=== PATIENT | male | born 1960 | race Hispanic/Latino ===

== ENCOUNTER 2021-12-08 08:19 | Day surgery (SDC) | payer OTHER ==
[2021-12-08] MEDS ORDERED: NITROGLYCERIN SYRINGE 3 ML ONE (08:30)
[2021-12-08] MEDS ORDERED: HEPARIN/NS 5000 UNIT/500ML 1,000 ML IR ONE (08:30)
[2021-12-08] MEDS ORDERED: VERAPAMIL 5 MG/2 ML INJ ONE (08:30)
[2021-12-08] MEDS ORDERED: LIDOCAINE (2%) 20 MG/1 ML VIAL 20 ML MDV INFILTRATI ONE (08:30)
[2021-12-08] MEDS ORDERED: LIDOCAINE (1%) 10 MG/1 ML VIAL 20 ML MDV ONE (08:31)
[2021-12-08] MEDS ORDERED: ASPIRIN EC 325 MG TAB PO ONE (08:49)
[2021-12-08] MEDS ORDERED: SODIUM CHLORIDE 0.9% 500 ML 500 ML IV SCH (09:00)
[2021-12-08 09:15] LABS: Basophils % (Auto) 0.6 % (0.0-1.8); Eosinophils # (Auto) 0.5 K/mm3 (0.0-0.4); Hematocrit 45.9 % (35.5-45.6); Lymphocytes % (Auto) 33.5 % (13.4-35.0); Mean Corpuscular HGB Conc 33 % (32-34); Mean Corpuscular Volume 86 fl (84-94); Monocytes # (Auto) 0.8 K/mm3 (0.0-0.8); Monocytes % (Auto) 13.3 % (0.0-7.3); Platelet Count 220 K/mm3 (140-440); Red Blood Count 5.36 M/mm3 (3.65-5.03); Red Cell Distribution Width 14.3 % (13.2-15.2)
[2021-12-08 09:29] LABS: INR 0.87 (0.87-1.13); Partial Thromboplastin Time 26.7 Sec. (24.2-36.6)
[2021-12-08 09:32] LABS: BUN/Creatinine Ratio 16; Blood Urea Nitrogen 13 mg/dL (9-20); Calcium 9.7 mg/dL (8.4-10.2); Hemolysis Index 4
[2021-12-08] MEDS ORDERED: fentaNYL 100 MCG/2 ML INJ ONE ×2 (10:04→11:42)
[2021-12-08] MEDS: MIDAZOLAM 2 MG/2 ML INJ ONE ×2 (10:20→12:51)
[2021-12-08] MEDS: HEPARIN 10,000 UNITS/10 ML VIAL ONE ×2 (10:25→11:03)
[2021-12-08] MEDS ORDERED: DOPamine 800 MG/D5W 250ML 800 MG/250 ML BAG IV ONE (10:54)
[2021-12-08] MEDS ORDERED: HEPARIN/NS 5000 UNIT/500ML 500 ML IR ONE ×2 (10:57→12:25)
[2021-12-08] MEDS ORDERED: SODIUM CHLORIDE 0.9% 1000 ML 1,000 ML ONE ×4 (10:57→14:05)
[2021-12-08] MEDS ORDERED: ONDANSETRON 4 MG/2 ML INJ ONE (11:01)
[2021-12-08] MEDS: PHENYLEPHRINE/NS 1,000 MCG/10 ML SYRINGE (OR USE) IV ONE ×2 (11:10→11:13)
[2021-12-08] MEDS ORDERED: SODIUM CHLORIDE 0.9% 100 ML ONE (11:11)
[2021-12-08] MEDS ORDERED: AMIODARONE 150 MG/3 ML INJ IV ONE ×2 (11:13→11:38)
[2021-12-08] MEDS ORDERED: TIROFIBAN/NS 12,500 MCG/250 ML BAG IV ONE (11:23)
[2021-12-08] MEDS ORDERED: MIDAZOLAM 5 MG/5 ML INJ MDV IV ONE ×7 (11:33→14:45)
[2021-12-08] MEDS ORDERED: DEXTROSE 5% IN WATER 100 ML IV ONE (11:39)
--- NOTE | 2021-12-08 11:51 | Progress Note ---
Subjective Date of service: 12/08/21 Principal diagnosis: Chest pain Interval history: Called in to the mine laborer #[address] Willie Leach during cardiac cath procedure. Patient unstable, low BP, agitated, and in respiratory distress. Patient started on Levophed infusion. 100 mcg of Epi given IV. Decision made to intubate the patient. 16 mg of Etomidate and 140 mg Succs given IV. Upper and lower dentures removed and given to SHANNAN Santiago. Atraumatic intubation via DL. 7.5 ETT. 22cm @ the lip. Position confirmed with bilateral lung auscultation and color change on CO2 sensor. For sedation purposes, Versed 5mg was given IV. Transfer of care to mine laborer team and respiratory therapist. Objective - Constitutional Vitals: Vital Signs - 12hr 12/08/21 12/08/21 09:04 09:09 Temperature 97.7 F Pulse Rate 51 L Respiratory 21 Rate Blood Pressure 131/79 [Left] O2 Sat by Pulse 97 Oximetry O2 Sat by Pulse 99 Oximetry [ Bilateral Throughout] - Labs CBC & Chem 7: 12/08/21 09:05 12/08/21 09:05 Labs: Abnormal lab results 12/08/21 12/08/21 Range/Units 09:05 09:05 RBC 5.36 H (3.65-5.03) M/mm3 Hct 45.9 H (35.5-45.6) % Cochran % (Auto) 13.3 H (0.0-7.3) % Eos % (Auto) 8.0 H (0.0-4.3) % Eos # (Auto) 0.5 H (0.0-0.4) K/mm3 Glucose 119 H (75-100) mg/dL
[2021-12-08] MEDS ORDERED: HEPARIN/ 0.45% NACL DRIP 25,000 UNIT/500 ML BAG ONE (11:55)
[2021-12-08] MEDS ORDERED: TICAGRELOR 90 MG TAB ONE (12:21)
[2021-12-08] MEDS ORDERED: WATER FOR INJ Sterile (PF) 10 ML ONE (12:33)
[2021-12-08] MEDS ORDERED: MIDAZOLAM 2 MG/2 ML INJ IV PRN (12:47)
[2021-12-08] MEDS ORDERED: AMIODARONE 900 MG in DEXTROSE 5% IN WATER 482 ML IV SCH (13:00)
[2021-12-08] MEDS ORDERED: EPINEPHrine 1 MG/10 ML SYRINGE ONE (13:13)
[2021-12-08] MEDS ORDERED: SUCCINYLCHOLINE CHLORIDE 200 MG/10 ML INJ MDV ONE (13:13)
[2021-12-08] MEDS ORDERED: ETOMIDATE 20 MG/10 ML INJ IV ONE (13:13)
[2021-12-08] MEDS ORDERED: ROCURONIUM 50 MG/5 ML INJ IV ONE (13:13)
--- NOTE | 2021-12-08 14:29 | Cardiac Catherization Report ---
DATE OF PROCEDURE: 12/08/2021 CARDIAC CATHETERIZATION REFERRING PHYSICIAN: King Daniel MD INDICATIONS FOR PROCEDURE: The patient is a pleasant 61-year-old gentleman with multiple risk factors including very strong family history of heart disease, presents here with chest pain, abnormal stress test, referred for left heart catheterization. Interestingly, he has 9 family members who had an [place] or significant coronary artery disease, so very strong family history. Risks, benefits and alternatives were discussed at length prior to obtaining informed consent. PROCEDURE IN DETAIL: The patient was brought to laboratory associate in a postabsorptive state, prepped and draped in a sterile fashion. Royer's test in right hand is normal. 2 mL of 2% lidocaine used to anesthetize the right wrist. A standard 6-Danish hydrophilic sheath placed in the right radial artery via modified Seldinger technique. All exchanges performed to exchange a J-tip guidewire. A JL3.5 catheter used to engage the left main. Cineangiography performed. At this point, the patient developed ST elevation and chest pain and tachycardia. Catheter was withdrawn. This improved somewhat. We completed angiography of the left system. MERRITT 3 flow is noted. JR4 catheter used to cross the aortic valve. Cineangiography performed in all projections. Next, the catheter removed from the body. Catheter was used to engage the right coronary. No dampening or ventricularization. Cineangiography performed in all projections. At this point, the patient developed chest pain and ST elevation again. CORONARY ANATOMY: This is a right-dominant system. Right coronary is a moderate-sized vessel, courses AV groove, distally bifurcates into posterior, posterior descending and posterolateral branches. No significant disease noted. Left main without significant disease. Left circumflex with a 30% calcific stenosis proximally, but MERRITT 3 flow. LAD with a complex long 90% stenosis in the proximal and midsegment, wraps around the apex. Normal LV function, estimated at 55-60%. No evidence of aortic stenosis. At this point, the patient had chest pain, ST elevation, which was recurrent and I decided to proceed with urgent PCI. EBU 3.0 guide used to engage the left main without difficulty, crossed the LAD with a [place] wire. The patient was heparinized. Abnormal ACT was confirmed. At this point, we used a 2.5 x 30 balloon to predilate the lesion. Next, we used a 2.75 x 38 Wna drug-eluting stent deployed at 10 LISA for 30 seconds. Excellent angiographic result. However, at this point, there is a mild lesion distal to the stent. We placed another 15 x 2.5 Wan drug-eluting stent overlapping. We postdilated the overlap. The patient was doing okay. The patient suddenly developed hypotension without ST changes. The etiology was unclear to me. He did have a jailed diagonal, which was small in the mid-LAD and a jailed diagonal more proximally with MERRITT 2 flow, but these are small vessels. I do not believe these were the culprit. The patient continued to develop refractory hypotension at this point and then did develop chest pain. Anesthesia was called. The patient was started on multiple pressors. We got access in the right leg with a venous sheath and put in an arterial sheath and put an intraaortic balloon pump in place. Angiogram reveals patent stent. No mechanical complications of the LAD except for jailed diagonal, MERRITT 2 flow. I believe hypotension is real culprit here, of unclear etiology. Bedside echocardiography during the case revealed normal LV function at 60-65 and no pericardial effusion. The patient was watched very closely on the table for the next two hours. Blood pressure gradually improved. The patient did flip into atrial fibrillation and started on IV amiodarone. The patient was intubated, sedated on IV amiodarone. Patent LAD stent, intraaortic balloon pump is in place, is clinically more stable. At this point, the etiology of his acute hypotension remains unclear to me. It does not appear that he had a mechanical complication. Stent was patent without complication or dissection with normal flow and also echocardiogram showed normal LV function and no pericardial effusion. It is possible that he had a late anaphylactic reaction to dye, but again the etiology of this is not clear to me. The patient has been started on IV fluids, pressors and so forth. Over 90 minutes of critical care time here. I directly supervised the administration of moderate sedation initially from 10:20 a.m. to 11:58 a.m. Obviously anesthesia was helpful and intubated the patient as well. CONCLUSIONS: 1. Severe single vessel coronary artery disease with a complex 90% proximal and mid-LAD stenosis. ST elevation and chest pain with injection. Urgent PCI of LAD with two overlapping drug-eluting stents (Wan 2.75 x 38, [place] 2.5 x 15) with excellent angiographic result. However, complicated by unexplained hypotension, unclear if this was an anaphylactic reaction or vagal episode. 2. Preserved LV function. 3. No significant disease in the right coronary. Nonobstructive disease in the left circumflex. 4. No evidence of aortic stenosis. The patient was watched in the laboratory associate for 2+ hours after the case. The patient currently has an intraaortic balloon pump in place, on 2 mcg of dopamine, is normotensive. Balloon pump in place, atrial fibrillation with controlled ventricular response, on IV heparin, IV amiodarone. Brilinta was given via an NG tube. ST segments are normal. He seems to have stabilized. Again, I am not sure if this was an anaphylactic reaction or what actually caused his hypotension. He will be transferred to [facility] for tertiary care, likely repeat heart catheterization. I made sure to keep the abreast on multiple occasions throughout. He is not entirely out of [facility], but he does appear to be stable enough for transfer at this point. Intraaortic balloon pump is at 1:1. Critical care team is at bedside as well. We will continue to keep a close eye on this gentleman. Also updated his primary and referring clerk typist, Dr. Daniel. TID: [id number] RECEIPT: [id number] SBM/RAINER
[2021-12-08 15:54] VITALS: BP 103/72
--- NOTE | 2021-12-08 18:11 | Short Stay Summary ---
Short Stay Documentation Date of service: 12/08/21 - History H&P: obtained from office - Allergies and Medications Current Medications: Allergies Penicillins Allergy (Verified 12/08/21 08:48) Unknown Home Medications Medication Instructions Recorded Confirmed Last Taken Type Ascorbic Acid/Ascorbate Sodium 500 mg PO DAILY 12/08/21 12/08/21 12/07/21 History [Vit C-Katt Hips 500 mg Chew Tb] 500 mg Ascorbic Acid/Elderberry Fruit 1 tab PO DAILY 12/08/21 12/08/21 12/07/21 History [Airborne Elderberry Chew Tab] 1 tab Aspirin [Aspirin BABY CHEW TAB] 81 mg PO DAILY 12/08/21 12/08/21 12/07/21 History 81 mg Cholecalciferol Vit D3 [Vitamin D3 1,000 units PO DAILY 12/08/21 12/08/21 12/07/21 History 1,000 UNIT TAB] 1000 units Ezetimibe [Zetia] 10 mg PO DAILY 12/08/21 12/08/21 12/07/21 History 10 mg amLODIPine 5 mg PO DAILY 12/08/21 12/08/21 12/07/21 History 5 mg - Brief post op/procedure progress note Date of procedure: 12/08/21 Pre-op diagnosis: Chest pain Post-op diagnosis: other (Severe single-vessel disease) Estimated blood loss: minimal - Hospital course Hospital course: Patient presents today for cardiac cath. Patient found to have severe single- vessel coronary artery disease with 96% proximal and mid LAD stenosis. Patient developed ST elevation and chest pain with injection urgent PCI of LAD with 2 overlapping TINA. Case complicated by unexplained hypotension. Intra-aortic balloon pump placed and patient started on pressors, IV heparin, IV amiodarone. Patient was also intubated. Patient transferred to [facility] for further care. See cardiac catheterization report for further detail - Disposition Condition at discharge: Critical Disposition: [facility] Short Stay Discharge Plan Activity: advance as tolerated Diet: low fat, low cholesterol, low salt Wound: open to air, per your surgeon's advice Follow up with: ABIMBOLA AMADO DO [Primary Care Provider] - 7 Days
--- NOTE | 2021-12-09 11:24 | Electrocardiograph Report ---
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
== END 2021-12-08 14:50 | disposition critical access hospital (66) ==
LOC: CATHLABREC 08:19
PROVIDERS: ATTEND Internal Medicine
DX: R94.39 Abnormal result of other cardiovascular function study (principal); I25.10 Atherosclerotic heart disease of native coronary artery without angina pectoris; E78.00 Pure hypercholesterolemia, unspecified; R07.89 Other chest pain; K21.9 Gastro-esophageal reflux disease without esophagitis; M19.90 Unspecified osteoarthritis, unspecified site; Z85.89 Personal history of malignant neoplasm of other organs and systems; Z88.0 Allergy status to penicillin; Z79.899 Other long term (current) drug therapy; Z79.82 Long term (current) use of aspirin; Z87.891 Personal history of nicotine dependence; Z85.46 Personal history of malignant neoplasm of prostate; Z98.890 Other specified postprocedural states
CPT/HCPCS: 33967; 36415; 43752; 80048; 85025; 85610; 85730; 93005; 93308; 93321; 93325; 93458; 94002; 94003; 99156; 99157; C1725; C1769; C1874; C1887; C1894; C9600; J0171; J0282; J0330; J1265; J1644; J1815; J2250; J2370; J2405; J3010; J3246; J3490; J7030; J7040; J7060; 92928; Q0162; Q9967